=== PATIENT | male | born 1990 | race Caucasian/White ===

== ENCOUNTER 2022-05-30 05:57 | Emergency (ER) | payer BC, SELFPAY ==
[2022-05-30 05:57] VITALS: BP 126/76; PULSE 85; RESP 18; TEMP 36.6; O2SAT 99; BMI 29.9
--- NOTE | 2022-05-30 06:13 | CT_ITS ---
INDICATION: abdominal pain, worse since Saturday EXAMINATION: CT Abdomen And Pelvis W/ Contrast Injection TECHNIQUE: Helically acquired images were obtained of the abdomen and pelvis following IV contrast. 2-D reconstructions reviewed. A radiation dose optimization technique was used for this scan. IV Contrast dosage and agent: 100 cc Isovue-300 Oral contrast: None. COMPARISON: None. FINDINGS: LOWER CHEST: Mild scarring left lung base. Heart size within normal limits. LIVER: Mild focal fat within left lobe adjacent to falciform ligament. No concerning lesion. GALLBLADDER AND BILIARY TREE: No calcified gallstones identified. No gallbladder wall edema demonstrated. No significant biliary ductal dilation. PANCREAS: No discrete mass or peripancreatic edema. SPLEEN: Normal size without focal cystic or solid mass. ADRENAL GLANDS: Unremarkable. KIDNEYS AND URETERS: Normal renal size and position. No perinephric edema or hydronephrosis. No concerning lesion. PERITONEUM: No peritoneal free air or significant free fluid. No other fluid collection. RETROPERITONEUM: No retroperitoneal mass or pathologic fluid collection. BOWEL: Status post appendectomy. No bowel obstruction or significant bowel thickening. No focal inflammatory change. LYMPH NODES: No enlarged mesenteric or retroperitoneal lymph nodes. VESSELS: No acute findings. No abdominal aortic aneurysm. URINARY BLADDER: Unremarkable as visualized. REPRODUCTIVE ORGANS: No pelvic masses. ABDOMINAL WALL: No acute findings or significant hernia defect. BONES: Intact with no suspicious osseous lesion. CT/Abdomen/Pelvis W IV Cont ONLY IMPRESSION: No evidence of acute intra-abdominal abnormality. Electronically Signed: Jason Amos MD at 7:50 EST ,
--- NOTE | 2022-05-30 06:15 | EDS_ITS ---
HPI HPI - GI History of Present Illness Chief Complaint: Abd Pain Informant: patient Narrative Narrative: Patient presents with abdominal pain that has been going on for 2 or 3 months. He states he always has a little full feeling in his upper abdomen under the ribs on the right. But if he eats something he gets increasing pain for 20 or 30 minutes. Foods that are acid like tomatoes or anything greasy is what bothers him the most. He does not have burning in his throat or pain up his chest. He also has some soft bowel movements but no blood. He has not been vomiting although sometimes he gets nauseated when the pain is bad. He has no history of biliary disease. However, when he has his appendix out about 10 years ago they stated they wanted to do a work-up for his gallbladder but he has no idea of the details beyond that. His mother had her gallbladder out at somewhere in her 20s. Patient also says that sometimes he has pain down lower in his abdomen and sometimes he has it in different areas. But most of it is r ight upper quadrant and epigastric. It does not go through to his back. Patient has no chronic medical conditions He is on no medications He has no allergies Surgery is appendectomy about 10 years ago [facility] Home Medications esomeprazole magnesium 20 mg capsule,delayed release (Nexium) 20 mg PO DAILY #30 caps 05/30/22 [Rx Last Taken Unknown] Allergy/AdvReac Type Severity Reaction Status Date / Time No Known Allergies Allergy Verified 05/30/22 06:01 Surgical History Hx of appendectomy Social History Smoking Status: Never smoker ROS ROS ED Constitutional Constitutional ED: Denies chills or fever(s) Cardiovascular Cardiovascular: Denies chest pain or racing heartbeat Respiratory/Chest Respiratory/Chest: Denies cough or dyspnea Gastrointestinal Gastrointestinal: Reports abdominal pain, diarrhea and nausea; Denies constipation, melena or vomiting Genitourinary Genitourinary ED: Denies dysuria or hematuria Musculoskeletal Musculoskeletal: Denies back pain Integumentary Denies rash Neurologic Neurologic: Denies paresthesias or weakness Endocrine Endocrinology: Denies polydipsia or polyuria Hematologic/Lymphatic Hematologic/Lymphatic: Denies easy bleeding or easy bruising Allergic/Immunologic Allergic/Immunologic ED: Denies urticaria EXAM Physical Exam Narrative Exam Narrative: Patient is awake alert sitting comfortably in bed in no acute distress. He is nontoxic. HEENT shows moist mucous membranes. No trauma. Eyes show no icterus. Lungs are clear bilaterally. No notable pain with a deep breath. Heart is regular with a rate about 80. I hear no murmur gallop or rub. He has normal peripheral pulses. Abdomen is flat nondistended and has normal bowel sounds. He does have some tenderness in the epigastric and mild right upper quadrant. Occasionally when I press lower he has some tenderness but that is much less consistent. I feel no hernia defect or mass. shows no CVA or suprapubic tenderness. Extremities show no tenderness. Skin shows no rash. Const Vital Signs: 05/30/22 05:57 Temperature 97.8 F Temperature Source Temporal Pulse Rate 85 Respiratory Rate 18 Blood Pressure 126/76 H Blood Pressure Mean 92 Pulse Ox 99 Oxygen Delivery Method Room Air MDM MDM MDM Narrative Medical decision making narrative: Patient CBC is normal including white count hemoglobin and platelets. Electrolytes are normal. Glucose is normal. Liver function test are normal other than minimal elevations of ALT. Lipase is normal. Urinalysis is normal. My independent interpretation of the patient's CT shows no significant acute process. I do not see any stranding or inflammation around the gallbladder. Pancreas looks normal. I see no sign of obstruction or ileus. I am not seeing any mass. I am awaiting final reading by radiology. This patient has been having intermittent or waxing and waning symptoms for months. As long as his CT does not show any acute process I think he can go home. Certainly this could be biliary but I think he can follow-up and have further outpatient work-up. Because he does have a lot of epigastric discomfort and discomfort with spicy or acid foods, I will start him on a proton pump inhibitor. Final reading by radiology also shows no acute process. I discussed the findings with the patient. I discussed the importance of follow-up, diet modification medication and reasons to return. Lab Data Attestation: I reviewed the patient's lab results. Labs: Laboratory Results - last 24 hr 05/30/22 05/30/22 05/30/22 06:23 06:23 06:40 WBC 8.7 RBC 4.94 Hgb 15.0 Hct 44.1 MCV 89.3 MCH 30.4 MCHC 34.0 RDW Std Deviation 43.2 RDW Coeff of Terri 13.2 Plt Count 287 MPV 9.1 Immature Gran % (Auto) 0.100 Neut % (Auto) 58.1 Lymph % (Auto) 27.2 [place] % (Auto) 12.1 H Eos % (Auto) 1.8 Baso % (Auto) 0.7 Absolute Neuts (auto) 5.1 Absolute Lymphs (auto) 2.37 Nucleated RBC % 0 Sodium 140 Potassium 3.8 Chloride 107 Carbon Dioxide 26.0 Anion Gap 7 BUN 12 Creatinine 0.84 Estim Creat Clear Calc 141.14 Est GFR (MDRD) Af Amer 138 Est GFR (MDRD) Non-Af 114 BUN/Creatinine Ratio 14.4 Glucose 94 Calcium 9.3 Total Bilirubin 0.60 AST 34 ALT 72 H Alkaline Phosphatase 68 Total Protein 7.1 Albumin 4.0 Globulin 3.1 Albumin/Globulin Ratio 1.3 Lipase 89 Urine Color Yellow Urine Clarity Clear Urine pH 6.5 Ur Specific [place] 1.010 Urine Protein Negative Urine Glucose (UA) Normal Urine Ketones 5 H Urine Occult Blood Negative Urine Nitrite Negative Urine Bilirubin Negative Urine Urobilinogen Normal Ur Leukocyte Esterase Negative Urine RBC 0 SEEN Urine WBC 0 SEEN Ur Squamous Epith Cells 0 SEEN Urine Bacteria 0 SEEN Urine Mucus 0 SEEN Radiography Diagnostic Testing: Clinical Impression(s) from Imaging Studies Abdomen/Pelvis CT 05/30/22 06:13 IMPRESSION: No evidence of acute intra-abdominal abnormality. Electronically Signed: Jason Amos MD at 7:50 EST , Discharge Plan Triage Chief Complaint: Abd Pain ED Provider: Miller Whiting Dx/Rx/DC Orders Clinical Impression: Abdominal pain, Gastritis Instructions: ED Gastritis (Adult), ED Abdominal Pain Unkn Cause Male... Prescriptions: New esomeprazole magnesium [Nexium] 20 mg capsule,delayed release(DR/EC) 20 mg PO DAILY Qty: 30 0RF Primary Care Provider: Care Physician,No Primary Referrals: Virgilio Mosley MD [Med Staff - [employer] Entertainer] - 1 Week if not improving NOT,DEFINED [Non-Staff] - Disposition Disposition: Home, Self Care
[2022-05-30] MEDS: 0.9% Normal Saline 1,000 ML 1000 ML IV (06:29)
[2022-05-30 06:34] LABS: Absolute Lymphocyte Count 2.37 X10^3/uL (0.83-4.51); Absolute Neutrophil Count 5.1 X10^3/uL (2.0-7.7); Basophil# 0.06 X10^3/uL; Basophil% 0.7 % (0-1); Eosinophil# 0.16 X10^3/uL; Eosinophils% 1.8 % (0-5); Hematocrit 44.1 % (40-54); Lymphocyte # 2.37 X10^3/ul (0.83-4.51); Lymphocyte % 27.2 % (19-41); Mean Corpuscular Hgb 30.4 pg (27.0-32.0); Mean Corpuscular Volume 89.3 fL (80-94); Mean Platelet Vol. 9.1 fl (6.2-12.0); Monocyte# 1.05 X10^3/uL; Monocyte% 12.1 % (0-10); NRBC Flagged by Analyzer 0 % (0-5); Neutrophil # 5.05 X10^3/uL (2.7-7.7); Neutrophil % 58.1 % (47-70); Platelet Count 287 K/mm3 (150-450); RBC Distribution Width CV 13.2 % (11.6-14.6); RBC Distribution Width SD 43.2 fl (35.1-43.9); Red Blood Count 4.94 M/mm3 (4.6-6.2); White Blood Count 8.7 K/mm3 (4.4-11.0)
[2022-05-30 06:44] LABS: Bacteria 0 SEEN /hpf (None Seen); Mucous, Urine 0 SEEN /hpf (<or=2+); Red Blood Cells-Urine 0 SEEN /hpf (0-5); Squamous Epithelial Cells - UA 0 SEEN /hpf (0-5); White Blood Cells 0 SEEN /hpf (0-5)
[2022-05-30 06:48] LABS: Color, Urine Yellow (Yellow); Glucose, Dipstick Normal (Normal); Ketone-Dipstick 5 mg/dl (Negative); Leukocyte Esterase-Dipstick Negative /ul (Negative); Nitrite-Dipstick Negative (Negative); Occult Blood-Urine Negative /ul (Negative); Protein-Dipstick Negative (Negative); Urine Bilirubin Dipstick Negative (Negative); Urine Clarity Clear (Clear); Urine Urobilinogen Normal (Normal); Urine pH 6.5 (5.0 - 8.0)
[2022-05-30 06:53] LABS: ALB/GLOB Ratio 1.3 RATIO (0.9-2.4); AST(SGOT) 34 U/L (15-37); Alanine Aminotransfer ALT/SGPT 72 U/L (16-61); Alkaline Phosphatase 68 U/L (45-117); Anion Gap 7 (5-15); BUN 12 mg/dL (7-18); BUN/Creat Ratio 14.4 RATIO (10-20); Calcium,Total 9.3 mg/dL (8.5-10.1); Chloride 107 mmol/L (98-107); Creatinine, Serum 0.84 mg/dL (0.70-1.30); EST Glomerular Filtration Rate 114 mL/min (>60); Est Glom Filt Rate - Afr Amer 138 mL/min (>60); Estimated Creatinine Clearance 141.14 ml/min; Globulin 3.1 g/dL (2.2-4.2); Glucose 94 mg/dL (74-106); Lipase 89 U/L (73-393); Potassium 3.8 mmol/L (3.5-5.1); Protein, Total 7.1 g/dL (6.4-8.2); Sodium Level 140 mmol/L (136-145)
== END 2022-05-30 08:03 | disposition home or self-care (01) ==
PROVIDERS: Emergency Provider Emergency Medicine; Visit Provider Emergency Medicine
DX: K29.70 Gastritis, unspecified, without bleeding (principal)
CPT/HCPCS: 74177; 80053; 81001; 83690; 85025; 96360; 96361; 99283; J7030; Q9967; A4216; J3490